=== PATIENT | female | born 1980 | race Caucasian/White ===

== ENCOUNTER 2017-06-26 06:33 | Day surgery (SDC) | payer BC ==
[~2017-06-26] VITALS: Ht 172.7 cm; Wt 65.3 kg
[2017-06-26 07:11] LABS: HCG,QUAL RESULT NEGATIVE (NEGATIVE)
[2017-06-26] MEDS ORDERED: fentaNYL CITRATE/PF 100 MCG/2 ML AMP IVP PRN (09:00)
[2017-06-26] MEDS ORDERED: METOCLOPRAMIDE HCL 10 MG/2 ML VIAL IVP ONE (09:00)
[2017-06-26] MEDS ORDERED: ONDANSETRON HCL 4 MG/2 ML VIAL IVP ONE (09:00)
[2017-06-26] MEDS ORDERED: HYDROmorphone 1 MG INJ. 1 MG/ML AMPUL IVP PRN (09:00)
[2017-06-26] MEDS ORDERED: MEPERIDINE HCL/PF 25 MG/ML DISP.SYRIN IVP PRN (09:00)
[2017-06-26] MEDS ORDERED: fentaNYL CITRATE/PF 100 MCG/2 ML AMP ONE (10:03)
[2017-06-26] MEDS ORDERED: ONDANSETRON HCL 4 MG/2 ML VIAL ONE (10:41)
[2017-06-26 11:02] VITALS: BP_SYST 144
== END 2017-06-26 12:00 | disposition home or self-care (01) ==
LOC: SDS 06:33
PROVIDERS: ATTEND Otolaryngology
DX: J34.2 Deviated nasal septum (principal); J34.89 Other specified disorders of nose and nasal sinuses; Z98.890 Other specified postprocedural states; J30.1 Allergic rhinitis due to pollen; J32.4 Chronic pansinusitis; Z88.8 Allergy status to other drugs, medicaments and biological substances; B36.8 Other specified superficial mycoses; H92.02 Otalgia, left ear
CPT/HCPCS: 30140; 30520; 31267; 84703; 87070; 87075; 87101; 88305; 88311; J2405; J3010; J7120; J2765